=== PATIENT | female | born 1950 | race Caucasian/White ===

== ENCOUNTER → 2018-08-28 | Day surgery (SDC) | payer OTHER ==
--- OUTSIDE RECORDS SUMMARY | 2018-08-28 09:29 | XMS REPORT | Clinical Summary ---
:1950 Author Organization [facility] Address [address] [place] [id number] Care Team Providers Name Role Phone Shai Mitchell DO Primary Care Provider Allergies Active Allergy Reactions Severity Noted Date Comments Sulfa (Sulfonamide Antibiotics) 07/14/2015 Medications Medication Sig Dispensed Refills Start Date End Date Status MAGNESIUM CITRATE 250mg one daily 0 Active ORAL multivitamin multivitamin 0 Active (THERAGRAN) tablet cholecalciferol, Take 1,000 Units 0 Active vitamin D3, by mouth daily. (VITAMIN D3) 1,000 unit capsule levothyroxine Take 1 tablet (88 90 tablet 3 11/28/2017 Active (SYNTHROID) 88 mcg mcg total) by tabletIndications: mouth every Acquired morning. hypothyroidism cholecalciferol, Take by oral 0 11/29/19 Discontinued vitamin D3, route. 18 (VITAMIN D3) 2,000 unit tablet omega-3 fatty 1000 mg one daily 0 11/29/19 Discontinued acids-vitamin E 18 (FISH OIL) 1,000 mg capsule levothyroxine Take 1 tablet (88 90 tablet 3 11/18/2016 11/29/19 Discontinued (SYNTHROID) 88 mcg mcg total) by 18 tabletIndications: mouth every Acquired morning. hypothyroidism alendronate Take 1 tablet (70 12 tablet 4 11/18/2016 11/29/19 Discontinued (FOSAMAX) 70 MG mg total) by 18 tabletIndications: mouth every 7 Osteoporosis days. Active Problems Problem Noted Date Osteoporosis 11/18/2016 Acquired hypothyroidism 11/18/2016 Encounters Date Type Specialty Care Team Description 11/28/2017 Office Visit Endocrinology Ravi Hammonds Acquired hypothyroidism (Primary Dx); MD Radha Osteoporosis, unspecified osteoporosis type, unspecified pathological fracture presence 11/28/2017 Ancillary Procedure Ravi Hammonds MD 11/28/2017 Orders Only Endocrinology Sharmin Pichardo, Osteoporosis without MA current pathological fracture, unspecified osteoporosis type (Primary Dx) 11/27/2017 Telephone Endocrinology Liz Carr 09/12/2017 Telephone Endocrinology Sharmin Pichardo MA after 08/27/2017 Family History Medical History Relation Name Comments Heart disease Father Heart disease Mother Osteoporosis Mother Thyroid disease Other siblings Relation Name Status Comments Father Mother Other siblings Alive Social History Tobacco Use Types Packs/Day Years Used Date Never Smoker Alcohol Use Drinks/Week oz/Week Comments Yes Sex Assigned at Date Recorded Not on file Job Start Date Occupation Industry Not on file Not on file Not on file Travel History Travel Start Travel End No recent travel history available. Last Filed Vital Signs Vital Sign Reading Time Taken Blood Pressure 147/75 11/28/2017 10:29 AM CDT Pulse 71 11/28/2017 10:29 AM CDT Temperature - - Respiratory Rate - - Oxygen Saturation - - Inhaled Oxygen Concentration - - Weight 59.2 kg (130 lb 9.6 oz) 11/28/2017 10:29 AM CDT Height 161.8 cm (5' 3.7") 11/28/2017 10:29 AM CDT Body Mass Index 22.63 11/28/2017 10:29 AM CDT Plan of Treatment Date Type Specialty Care Team Description 12/03/2018 Ancillary Procedure Ravi Hammonds MD [address] [facility] [address] [place] [address] [phone] 12/03/2018 Office Visit Endocrinology Ravi Hammonds MD [address] [facility] [address] [place] [address] [phone] Health Maintenance Due Date Last Done Comments BREAST CANCER SCREENING 2002 COLONOSCOPY SCREENING 2002 SHINGLES VACCINES (#1) 2002 65+ PNEUMOCOCCAL VACCINE (1 of 2 - PCV13) 2017 INFLUENZA VACCINE 09/20/2018 Procedures Procedure Name Priority Date/Time Associated Diagnosis Comments T4, FREE Routine 11/28/2017 11:15 Acquired Results for this AM CDT hypothyroidism procedure are in the results section. THYROID STIMULATING Routine 11/28/2017 11:15 Acquired Results for this HORMONE AM CDT hypothyroidism procedure are in the results section. BONE DENSITY Routine 11/28/2017 10:34 Osteoporosis Results for this AM CDT procedure are in the results section. after 08/27/2017 Results Thyroid stimulating hormone (11/28/2017 11:15 AM CDT) TSH 2.14 0.40 - 4.50 mIU/L [facility] [place] Specimen Blood Narrative Performed At FASTING:NO [facility] FASTING: NO Resulting Agency Comment Performing Organization Information: Site ID: [facility]: [facility] Address: [address] [place] [address] Director: Nicole Roberts Performing Organization Address [facility] Phone Number [facility] [address] [place] [address] T4, free (11/28/2017 11:15 AM CDT) T4, free 1.5 0.8 - 1.8 ng/dL [employer] [place] Specimen Blood Narrative Performed At FASTING:NO [facility]ST FASTING: NO Resulting Agency Comment Performing Organization Information: Site ID: [facility] Name: [facility] Address: [address] [place] [address] Director: Nicole Roberts Performing Organization Address [facility] Phone Number [facility] [address] [place] [address] Bone Density (11/28/2017 10:34 AM CDT) Specimen Narrative Performed At [facility] [address] [place] [address] Bone Density Report Name: Mala Jauregui Sex: Female Age: 67 Ethnicity: White Height: 63.7 in Referring Provider: RAVI HAMMONDS Date of : 1950 Weight: 130.6lb Indication: Postmenopausal osteoporosis; parental hip fracture Accession number: [id number] Bone Density: Exam date 11/28/2017 Region BMD (g/cm2) T-score Z-score Classification AP Spine(L3, L4) 0.750 -3.2 -1.3 Osteoporosis Femoral Neck(Left) 0.532 -2.9 -1.3 Osteoporosis Total Hip(Left) 0.690 -2.1 -0.8 Osteopenia Femoral Neck(Right) 0.512 -3.0 -1.5 Osteoporosis Total Hip(Right) 0.706 -1.9 -0.7 Osteopenia Total Hip Mean 0.698 -2.0 -0.8 Osteopenia World Health Organization criteria for BMD impression classify patients as Normal (T-score at or above 1.0), Osteopenia (T-score between 1.0 and 2.5), or Osteoporosis (T-score at or below 2.5). 10-year Fracture Risk: Major Osteoporotic Fracture 26% Hip Fracture 4.9% Reported Risk Factors: [place] (), T-score(WHO)=-2.9, BMI=22.6, parental fracture FRAX Version 3.08. Fracture probability calculated for an untreated patient. Fracture probability may be lower if the patient has received treatment. Previous Exams: Region Exam Date Age BMD (g/cm2) T-score BMD Change vs. Baseline BMD Change vs. Previous AP Spine(L3, L4) 11/28/2017 67 0.750 -3.2 -8.0%# -2.9%# 11/18/2016 66 0.772 -3.0 -5.3%# -0.6% 10/14/2015 65 0.777 -2.9 -4.7%# 2.4% 08/12/2014 64 0.759 -3.1 -6.9%# -6.9%# 07/09/2013 63 0.815 -2.6 Total Hip(Left) 11/28/2017 67 0.690 -2.1 0.0%# -0.8% 11/18/2016 66 0.696 -2.0 0.7%# 2.0% 10/14/2015 65 0.682 -2.1 -1.3%# 0.1% 08/12/2014 64 0.681 -2.1 -1.4%# -1.4%# 07/09/2013 63 0.691 -2.1 Total Hip(Right) 11/28/2017 67 0.706 -1.9 -3.0%# -1.0% 11/18/2016 66 0.713 -1.9 -2.1%# 2.8% 10/14/2015 65 0.694 -2.0 -4.7%# 0.7% 08/12/2014 64 0.689 -2.1 -5.4%# -5.4%# 07/09/2013 63 0.729 -1.7 *Denotes significance at 95% confidence level, LSC for AP Spine=0.022 g/cm2,LSC for Total Hip=0.027 g/cm2 # Denotes dissimilar scan types or analysis methods Impression: Degenerative changes limit interpretation at the spine. L3-L4 were used for analysis. The patient has osteoporosis, based on the Total Spine T-score. The patient has an estimated ten-year risk of hip fracture of 4.9% and an estimated ten-year risk of major fracture of 26%, based on the WHO FRAX algorithm for a patient not on therapy (NOF thresholds are 20% for a major fracture and 3% for a hip fracture). The patient has risk factors, including: parental hip fracture. No significant bone loss was observed. Discussion: INCREASED RISK OF FRACTURE. BONE DENSITY IS UNDESIRABLY LOW AT ONE OR MORE SKELETAL SITES, CONSISTENT WITH POSTMENOPAUSAL OSTEOPOROSIS. This patient's lowest T-score meets the World Health Organization's (WHO) criteria for osteoporosis at one or more sites (T-score -2.5 or below). In untreated patients, the risk of osteoporotic fracture increases approximately two-fold for each 1.0 SD decrease in T-score.Low bone density is not the only risk factor for fracture; also consider factors such as patient's age, frailty or poor health, risk of falling, risk of injury, previous osteoporotic fracture, family history of osteoporosis, cigarette smoking, low body weight, etc. Not everyone with low bone mineral density has osteoporosis; osteomalacia and other metabolic bone disorders should also be considered. Patients who have osteoporosis should be evaluated for specific diseases and conditions (secondary causes) that may cause or contribute to bone loss. The [place] [employer] Clinical Endocrinologists (AACE) and National Osteoporosis Foundation (NOF) recommend pharmacologic intervention for all postmenopausal women whose T-score is in this range. The patient should follow a healthful lifestyle (good nutrition with adequate calcium and vitamin D, and appropriate weight-bearing exercise). Follow-Up: Consider a repeat BMD and Vertebral Fracture Assessment (VFA) exam in 1-2 years or sooner if medically necessary, to reassess this patient's status. Reported by: Ravi Hammonds MD, MANDY, DWAYNE, FACP, CCD on 11/29/2017 5:53:00 AM. Performing Organization Address City/State/Zipcode Phone Number [facility] [address] [place] [address] after 08/27/2017 Insurance Payer Benefit Plan / Subscriber ID Effective Dates Phone Address Type Group MEDICARE MEDICARE PART A xxxxxxxxxx 2017-Present [place], [place] Medicare AND B AETNA AETNA PPO OPEN xxxxxxxxxx 2002-Present PPO CHOICE Advance Directives Patient has advance care planning documents on file. For more information, please contact:Cale Germain[address] [place] [address]
--- NOTE | 2018-08-28 13:01 | RAD REPORT ---
EXAM DESCRIPTION: US - Breast Core BX w/US Guidance - 08/28/2018 10:02 am CLINICAL HISTORY: ICD N63.0 COMPARISON: July 24 2018 ultrasound TECHNIQUE: The risks, benefits alternatives to the procedure were explained to the patient and infor med consent obtained. Skin and subcutaneous tissues anesthetized with lidocaine. Under sonographic guidance, two 14 gauge vacuum assisted core biopsies of the mass within the inner r etroareolar region of the right breast obtained. 2 centimeter specimens taken. Tissue given to pathology. Patient experienced no immediate complication IMPRESSION: Vacuum assisted core biopsies of the right breast mass
== END ==
LOC: DS 09:16
PROVIDERS: ATTEND Obstetrics & Gynecology
DX: N63.10 Unspecified lump in the right breast, unspecified quadrant (principal)
CPT/HCPCS: 19083; 88305